=== PATIENT | female | born 1995 | race Caucasian/White ===

== ENCOUNTER 2022-05-11 09:51 | Emergency (ER) | payer OTHER ==
[~2022-05-11] VITALS: Ht 165.1 cm; Wt 68.0 kg
[2022-05-11 09:54] VITALS: TEMP 98.7
[2022-05-11 10:31] LABS: PLATELET COUNT 376 K/uL (152-353)
[2022-05-11 10:37] LABS: POTASSIUM 4.1 mmol/L (3.6-5.2)
[2022-05-11 11:00] VITALS: BP 129/94
== END 2022-05-11 11:00 | disposition home or self-care (01) ==
LOC: ED 09:51
PROVIDERS: Family Medicine
DX: R42 Dizziness and giddiness (principal); R11.0 Nausea
CPT/HCPCS: 80053; 80307; 81002; 81025; 84443; 85027; 93005; 99282